=== PATIENT | male | born 1975 | race Caucasian/White ===

== ENCOUNTER 2022-12-29 16:24 | Emergency (ER) | payer BC ==
[~2022-12-29] VITALS: Ht 185.4 cm; Wt 119.7 kg
[2022-12-29 17:06] LABS: BASOPHILS % 0.5 % (0.0-1.0); EOSINOPHILS % 0.5 % (0.0-6.0); HEMATOCRIT 45.1 % (38.2-49.6); HEMOGLOBIN 15.1 g/dL (14.0-18.0); LYMPHOCYTES # (AUTO) 2.1 (1.0-3.2); LYMPHOCYTES % 24.2 % (18.0-39.1); MEAN CORPUSCULAR HGB CONC 33.5 g/dL (31-35); MEAN CORPUSCULAR VOLUME 92.6 fL (81-99); MONOCYTES # (AUTO) 0.8 (0.2-0.8); NEUTROPHILS # (AUTO) 5.6 (2.1-6.9); PLATELET COUNT 170 x10e3/uL (140-360); RED BLOOD COUNT 4.87 x10e6/uL (4.3-5.7)
[2022-12-29 17:53] LABS: ALBUMIN 3.9 g/dL (3.5-5.0); ALBUMIN/GLOBULIN RATIO 1.6 (0.8-2.0); CREATININE, SERUM 1.02 mg/dL (0.72-1.25)
[2022-12-29 17:59] LABS: LIPASE 20 U/L (8-78)
[2022-12-29] MEDS ORDERED: LISINOPRIL10 MG PO (17:59)
[2022-12-29] MEDS ORDERED: LISINOPRIL 10 MG TAB PO ONE (18:30)
== END 2022-12-29 18:40 | disposition home or self-care (01) ==
LOC: ER 16:29
DX: R07.89 Other chest pain (principal); Z98.84 Bariatric surgery status; F17.210 Nicotine dependence, cigarettes, uncomplicated
CPT/HCPCS: 36415; 71045; 80053; 83690; 84484; 85025; 93005; 99284